=== PATIENT | male | born 1995 | race Caucasian/White ===

== ENCOUNTER 2019-02-24 17:21 | Inpatient (IN) | payer BC, OTHER ==
[~2019-02-24] VITALS: Ht 185.5 cm; Wt 136.8 kg
[2019-02-24] VITALS (7 sets, daily range): BP systolic 124–141; BP diastolic 70–84
[2019-02-24] MEDS ORDERED: NS IV 1000 ML 1,000 ML IV STA (17:38)
[2019-02-24] MEDS ORDERED: KETOROLAC 30 MG/ML VIAL IVP ONE (17:45)
[2019-02-24] MEDS ORDERED: IOHEXOL 350 MG/ML 100 ML (OMNIPAQUE 350) VIAL IV ONE (17:45)
[2019-02-24] MEDS ORDERED: NS 100 ML (IVPB) BAG IV ONE (17:45)
[2019-02-24] MEDS ORDERED: ONDANSETRON 4 MG/2 ML (SDV) Z0FRAN IVP ONE (17:45)
[2019-02-24] MEDS ORDERED: CATHETER FLUSH 10 ML SYR IV PRN (17:45)
[2019-02-24] MEDS ORDERED: HOLD METFORMIN - RECEIVED CONTRAST 20 ML VIAL IV SCH (17:45)
--- NOTE | 2019-02-24 17:47 | ED Abdominal Pain ---
General Chief Complaint: Abdominal/GI Problems Stated Complaint: ABD PAIN History of Present Illness Date Seen by Provider: Feb 24, 2019 Time Seen by Provider: 17:45 Initial Comments The patient is a 23-year-old male with a history of asthma and a prior "bowel obstruction" from constipation / obstipation in the past which sounds as though it was managed conservatively and resolved. The patient presents with concern for acute onset of crampy generalized abdominal discomfort which has become more sharp and focal and localized to the right lower quadrant of the abdomen, nonradiating, with onset about 18 hours prior to arrival, awakening the patient from sleep. Patient at first thought he was just constipated but had a normal bowel movement which did not relieve his symptoms at all. Associated nausea and mild anorexia. No associated fevers, upper respiratory congestion/rhinorrhea, co ugh, shortness of breath or chest pain, upper or specifically left-sided abdominal pain, flank pain, back pain, pain to testicles or scrotum or inguinal region, dysuria or hematuria, changes in bowel habits. Patient states he has not had this discomfort before. Severity only about 3 out of 10 at present. Patient was sent here from the urgent care for further evaluation and treatment. Allergies and Home Medications Allergies Coded Allergies: amoxicillin (Verified Adverse Reaction, Unknown, vomiting, 02/24/19) Patient Home Medication List Home Medication List Reviewed: Yes Review of Systems Review of Systems Constitutional: see HPI All Other Systems Reviewed Negative Unless Noted: Yes (Negative excepted noted.) Past Iqkqepz-Oljcll-Fstucd Hx Past Med/Social Hx: Reviewed Nursing Past Med/Soc Hx Patient Social History Alcohol Use: Denies Use Recreational Drug Use: No Smoking Status: Never a Smoker 2nd Hand Smoke Exposure: No Recent Foreign Travel: No Contact w/Someone Who Travel: No Recent Hopitalizations: No Physical Abuse: No Sexual Abuse: No Mistreated: No Fear: No Seasonal Allergies Seasonal Allergies: No Past Medical History Surgeries: Yes Orthopedic Respiratory: Yes Asthma Cardiac: No Neurological: No Genitourinary: No Gastrointestinal: No Musculoskeletal: No Endocrine: No HEENT: No Cancer: No Psychosocial: No Integumentary: No Blood Disorders: No Adverse Reaction/Blood Tranf: No Family Medical History Reviewed Nursing Family Hx Physical Exam Vital Signs Vital Signs - First Documented 02/24/19 17:25 Temp 36.6 Pulse 95 Resp 18 B/P (MAP) 184/100 (128) Pulse Ox 98 Capillary Refill : Height/Weight/BMI Height: '" Weight: lbs. oz. kg; BMI Method: General Appearance: no apparent distress Exam Comments This is a younger male appearing nontoxic and in no acute distress. Head is normocephalic and atraumatic. Neck is supple and nontender. Oropharynx is moist. Lungs are clear to auscultation at all stations. There is a normal S1 and S2 without rubs or gallops and capillary refill is appropriate, less than 2 seconds globally. Abdomen is soft and nondistended with mild right lower quadrant tenderness to palpation without rebound or guarding. Skin is warm and dry without cyanosis, clubbing or edema. Psychiatrically, the patient demonstrates appropriate mood and affect and is alert. Progress/Results/Core Measures Results/Orders Lab Results Laboratory Tests Test 02/24/19 17:42 02/24/19 18:15 Range/Units White Blood Count 9.7 4.3-11.0 10^3/uL Red Blood Count 5.66 4.35-5.85 10^6/uL Hemoglobin 15.7 13.3-17.7 G/DL Hematocrit 48 40-54 % Mean Corpuscular Volume 85 80-99 FL Mean Corpuscular Hemoglobin 28 25-34 PG Mean Corpuscular Hemoglobin Concent 33 32-36 G/DL Red Cell Distribution Width 14.9 H 10.0-14.5 % Platelet Count 294 130-400 10^3/uL Mean Platelet Volume 11.9 H 7.4-10.4 FL Neutrophils (%) (Auto) 52 42-75 % Lymphocytes (%) (Auto) 36 12-44 % Monocytes (%) (Auto) 8 0-12 % Eosinophils (%) (Auto) 2 0-10 % Basophils (%) (Auto) 1 0-10 % Neutrophils # (Auto) 5.1 1.8-7.8 X 10^3 Lymphocytes # (Auto) 3.5 1.0-4.0 X 10^3 Monocytes # (Auto) 0.8 0.0-1.0 X 10^3 Eosinophils # (Auto) 0.2 0.0-0.3 10^3/uL Basophils # (Auto) 0.1 0.0-0.1 10^3/uL Sodium Level 136 135-145 MMOL/L Potassium Level 4.0 3.6-5.0 MMOL/L Chloride Level 98 98-107 MMOL/L Carbon Dioxide Level 23 21-32 MMOL/L Anion Gap 15 H 5-14 MMOL/L Blood Urea Nitrogen 19 H 7-18 MG/DL Creatinine 1.03 0.60-1.30 MG/DL Estimat Glomerular Filtration Rate > 60 BUN/Creatinine Ratio 18 Glucose Level 101 70-105 MG/DL Calcium Level 9.5 8.5-10.1 MG/DL Corrected Calcium 8.5-10.1 MG/DL Total Bilirubin 0.2 0.1-1.0 MG/DL Aspartate Amino Transf (AST/SGOT) 16 5-34 U/L Alanine Aminotransferase (ALT/SGPT) 17 0-55 U/L Alkaline Phosphatase 117 40-136 U/L Total Protein 8.4 H 6.4-8.2 GM/DL Albumin 4.6 H 3.2-4.5 GM/DL Lipase 26 8-78 U/L Urine Color YELLOW Urine Clarity CLEAR Urine pH 6.0 5-9 Urine Specific [place] 1.020 1.016-1.022 Urine Protein NEGATIVE NEGATIVE Urine Glucose (UA) NEGATIVE NEGATIVE Urine Ketones NEGATIVE NEGATIVE Urine Nitrite NEGATIVE NEGATIVE Urine Bilirubin NEGATIVE NEGATIVE Urine Urobilinogen 0.2 < = 1.0 MG/DL Urine Leukocyte Esterase NEGATIVE NEGATIVE Urine RBC (Auto) TRACE H NEGATIVE Urine RBC RARE /HPF Urine WBC NONE /HPF Urine Squamous Epithelial Cells RARE /HPF Urine Crystals NONE /LPF Urine Bacteria NEGATIVE /HPF Urine Casts NONE /LPF Urine Mucus NONE /LPF Urine Culture Indicated NO My Orders Orders - ANDREW CULLEN MD Ondansetron Injection (Zofran Injectio (02/24/19 17:45) Ns Iv 1000 Ml (Sodium Chloride 0.9%) (02/24/19 17:38) Ed Iv/Invasive Line Start (02/24/19 17:38) Comprehensive Metabolic Panel (02/24/19 17:38) Lipase (02/24/19 17:38) Ua Culture If Indicated (02/24/19 17:38) Cbc With Automated Diff (02/24/19 17:38) Ct Abdomen/Pelvis W (02/24/19 17:38) Ketorolac Injection (Toradol Injection) (02/24/19 17:45) Iohexol Injection (Omnipaque 350 Mg/Ml 1 (02/24/19 17:45) Received Contrast (Hold Metformin- Contr (02/24/19 17:45) Sodium Chloride Flush (Catheter Flush Sy (02/24/19 17:45) Ns (Ivpb) (Sodium Chloride 0.9% Ivpb Bag (02/24/19 17:45) Ertapenem (Non-Formulary) (Invanz (Non-F (02/25/19 09:00) Medications Given in ED Current Medications Medications Dose Ordered Sig/Sarah Route Start Time Stop Time Status Last Admin Dose Admin Iohexol 100 ml ONCE ONCE IV 02/24/19 17:45 02/24/19 17:46 DC 02/24/19 18:09 100 ML Ketorolac Tromethamine 30 mg ONCE ONCE IVP 02/24/19 17:45 02/24/19 17:46 DC 02/24/19 17:48 30 MG Ondansetron HCl 4 mg ONCE ONCE IVP 02/24/19 17:45 02/24/19 17:46 DC 02/24/19 17:48 4 MG Sodium Chloride 10 ml NEEDED PRN IV 02/24/19 17:45 02/24/19 18:09 10 ML Sodium Chloride 100 ml ONCE ONCE IV 02/24/19 17:45 02/24/19 17:46 DC 02/24/19 18:09 100 ML Vital Signs/I&O 02/24/19 17:25 Temp 36.6 Pulse 95 Resp 18 B/P (MAP) 184/100 (128) Pulse Ox 98 Progress Progress Note : Time: 17:48 Progress Note 23-year-old male with generalized abdominal discomfort which is become more focal and sharp to the right lower quadrant of the abdomen. We will place IV and check labs and give medication for discomfort and nausea and we'll obtain a CT scan of the abdomen and pelvis with IV contrast. We will then reevaluate. Update 1900: The patient is resting comfortably in no acute distress on reassessment. Laboratory evaluation is unremarkable however CT does reveal enlarged appendix with findings suspicious for early acute appendicitis, certainly even more suspicious given the clinical context. Penicillin allergy so we will give a dose of Invanz and will proceed with admission to [facility]. Dr. Lemus of general surgery graciously accepts. Diagnostic Imaging Comments CT ABDOMEN/PELVIS W INDICATION: Nausea and lower abdominal pain. TECHNIQUE: Multiple contiguous axial images were obtained through the abdomen and pelvis after administration of intravenous contrast. Auto Exposure Controls were utilized during the CT exam to meet ALARA standards for radiation dose reduction. COMPARISON: There is no previous study for comparison. The visualized portions of the lung bases are clear. There were no pleural fluid collections. There is no free intraperitoneal air. The liver shows no focal lesions. Gallbladder appears normal. The spleen, adrenals, and pancreas appear normal. The kidneys bilaterally are unremarkable. There is no retroperitoneal mass or adenopathy. There is no ascites. The visualized bowel loops appear unremarkable. The appendix is mildly thickened measuring up to 7 mm, with perhaps slight periappendiceal haziness. IMPRESSION: Findings suspicious for early appendicitis with mild thickening of the appendix with slight periappendiceal haziness. There is no abscess, bowel obstruction or other focal abnormality. Dictated on workstation # [id number] Departure Impression Primary Impression: Right lower quadrant abdominal pain Additional Impression: Acute appendicitis Qualified Codes: K35.890 - Other acute appendicitis without perforation or gangrene Disposition: ADMITTED INPATIENT Condition: Stable ANDREW CULLEN MD Feb 24, 2019 17:47
[2019-02-24 18:10] LABS: HEMATOCRIT 48 % (40-54); HEMOGLOBIN 15.7 G/DL (13.3-17.7); MEAN CORPUSCULAR HEMOGLOBIN 28 PG (25-34); MEAN CORPUSCULAR HGB CONC 33 G/DL (32-36); MEAN CORPUSCULAR VOLUME 85 FL (80-99); MEAN PLATELET VOLUME 11.9 FL (7.4-10.4); NEUTROPHILS % (AUTO) 52 % (42-75); PLATELET COUNT 294 10^3/uL (130-400); RED CELL DISTRIBUTION WIDTH 14.9 % (10.0-14.5); WHITE BLOOD COUNT 9.7 10^3/uL (4.3-11.0)
[2019-02-24 18:11] LABS: BASOPHILS # (AUTO) 0.1 10^3/uL (0.0-0.1); BASOPHILS % (AUTO) 1 % (0-10); EOSINOPHILS # (AUTO) 0.2 10^3/uL (0.0-0.3); EOSINOPHILS % (AUTO) 2 % (0-10); LYMPHOCYTES # (AUTO) 3.5 X 10^3 (1.0-4.0); LYMPHOCYTES % (AUTO) 36 % (12-44); MONOCYTES # (AUTO) 0.8 X 10^3 (0.0-1.0); MONOCYTES % (AUTO) 8 % (0-12); NEUTROPHILS # (AUTO) 5.1 X 10^3 (1.8-7.8)
--- NOTE | 2019-02-24 18:28 | Diagnostic Imaging Report ---
INDICATION: Nausea and lower abdominal pain. TECHNIQUE: Multiple contiguous axial images were obtained through the abdomen and pelvis after administration of intravenous contrast. Auto Exposure Controls were utilized during the CT exam to meet ALARA standards for radiation dose reduction. COMPARISON: There is no previous study for comparison. The visualized portions of the lung bases are clear. There were no pleural fluid collections. There is no free intraperitoneal air. The liver shows no focal lesions. Gallbladder appears normal. The spleen, adrenals, and pancreas appear normal. The kidneys bilaterally are unremarkable. There is no retroperitoneal mass or adenopathy. There is no ascites. The visualized bowel loops appear unremarkable. The appendix is mildly thickened measuring up to 7 mm, with perhaps slight periappendiceal haziness. IMPRESSION: Findings suspicious for early appendicitis with mild thickening of the appendix with slight periappendiceal haziness. There is no abscess, bowel obstruction or other focal abnormality. Dictated by: Dictated on workstation # [id number]
[2019-02-24 18:33] LABS: BACTERIA,URINE NEGATIVE /HPF; BILIRUBIN,URINE NEGATIVE (NEGATIVE); CLARITY,URINE CLEAR; COLOR,URINE YELLOW; GLUCOSE, URINE (UA) NEGATIVE (NEGATIVE); KETONES,URINE NEGATIVE (NEGATIVE); LEUKOCYTE ESTERASE ,URINE NEGATIVE (NEGATIVE); NITRITE,URINE NEGATIVE (NEGATIVE); PROTEIN,URINE NEGATIVE (NEGATIVE); RBC,URINE RARE /HPF; SQUAMOUS EPITHELIAL CELL,UR RARE /HPF
[2019-02-24 18:40] LABS: ALANINE AMINOTRANSFERASE 17 U/L (0-55); ALKALINE PHOSPHATASE 117 U/L (40-136); BILIRUBIN,TOTAL 0.2 MG/DL (0.1-1.0); BUN/CREATININE RATIO 18; CALCIUM 9.5 MG/DL (8.5-10.1); CARBON DIOXIDE 23 MMOL/L (21-32); CHLORIDE 98 MMOL/L (98-107); CREATININE SERUM 1.03 MG/DL (0.60-1.30); GFR ESTIMATED > 60; GLUCOSE 101 MG/DL (70-105); SODIUM 136 MMOL/L (135-145); TOTAL PROTEIN 8.4 GM/DL (6.4-8.2)
[2019-02-24 18:41] LABS: ALBUMIN 4.6 GM/DL (3.2-4.5); LIPASE 26 U/L (8-78)
[2019-02-24] MEDS ORDERED: morphine INJ 10 MG/ML 1ML (SYR OR VIAL) IVP STA (19:07)
--- NOTE | 2019-02-24 19:16 | NUR ---
CALLED FOR ROOM.
--- NOTE | 2019-02-24 20:30 | NUR ---
STEVE GAMBLE admitted to room 420-1, with an admitting diagnosis of ACUTE APPENDICITIS, on 02/24/19 from [place] via [facility], accompanied by EMS.STEVE GAMBLE introduced to surroundings, call light, bed controls, phone, TV, temperature control, lights, meal times, smoking policy, visitor policy, side rail policy, bathrooms and showers. Patient Rights given to patient in the handbook. STEVE GAMBLE verbalizes understanding that [facility] is not responsible for the loss or damage to any personal effects or valuables that are kept in the patients posession during their hospitalization. Patient and/or family were informed about the Rapid Response Team and its purpose.
[2019-02-24] MEDS ORDERED: D5 NS 1000 ML IV SOLUTION 1,000 ML IV ONE (20:35)
[2019-02-24] MEDS ORDERED: LACTATED RINGERS 1,000 ML IV PRN (20:47)
[2019-02-24] MEDS ORDERED: SEVOFLURANE (ULTANE) 15 ML INHAL SOLN ONE (20:49)
[2019-02-24] MEDS ORDERED: LIDOCAINE PF 2% 5 ML (XYLOCAINE) VIAL ONE (20:49)
[2019-02-24] MEDS ORDERED: proPOfol 200 MG/20 ML (DIPRIVAN) VIAL IV ONE ×2 (20:49→22:14)
[2019-02-24] MEDS ORDERED: MIDAZOLAM 2 MG/2 ML (VERSED) VIAL ONE (20:53)
[2019-02-24] MEDS ORDERED: morphine INJ 10 MG/ML 1ML (SYR OR VIAL) IVP ONE (21:00)
[2019-02-24] MEDS ORDERED: ONDANSETRON 4 MG/2 ML (SDV) Z0FRAN IVP PRN (21:00)
[2019-02-24] MEDS: D5 NS 1000 ML IV SOLUTION 1,000 ML IV SCH (21:00)
[2019-02-24] MEDS ORDERED: MEPERIDINE (DEMEROL) INJ 50 MG/ML IVP ONE (21:00)
[2019-02-24] MEDS ORDERED: fentaNYL INJECTION 100 MCG/2 ML AMP IVP ONE (21:00)
[2019-02-24] MEDS ORDERED: BUP/EPI 0.5% 1:200,000 (SENSORCAINE) 30 ML VIAL ONE (21:02)
--- NOTE | 2019-02-24 21:20 | NUR ---
DR LOVE SEEN PT, DISCUSSED SURGICAL PROCEDURE WITH PT. INFORMED CONSENT OBTAIN BY THIS RN.
--- NOTE | 2019-02-24 21:25 | NUR ---
PT OFF FLOOR FOR PROCEDURE AT THIS TIME. ADMISSION QUESTIONS NOT FINISHES AT THIS TIME DUE TO PROCEDURE Addendum: 02/24/19 at 2278 by WAYNE BRADFORD RN FINISHED
[2019-02-24] MEDS ORDERED: ONDANSETRON 4 MG/2 ML (SDV) Z0FRAN IV PRN (21:30)
--- NOTE | 2019-02-24 21:31 | Consultation - Surgery ---
History of Present Illness History of Present Illness Patient Consulted On(carlos/time) 02/24/19 21:23 Time Seen by Provider: 21:01 History of Present Illness Surgery asked to consult regarding RLQ pain, Appendicitis. HPI per ED: The patient is a 23-year-old male with a history of asthma and a prior "bowel obstruction" from constipation / obstipation in the past which sounds as though it was managed conservatively and resolved. The patient presents with concern for acute onset of crampy generalized abdominal discomfort which has become more sharp and focal and localized to the right lower quadrant of the abdomen, nonradiating, with onset about 18 hours prior to arrival, sarah kening the patient from sleep. Patient at first thought he was just constipated but had a normal bowel movement which did not relieve his symptoms at all. Associated nausea and mild anorexia. No associated fevers, upper respiratory congestion/rhinorrhea, cough, shortness of breath or chest pain, upper or specifically left-sided abdominal pain, flank pain, back pain, pain to testicles or scrotum or inguinal region, dysuria or hematuria, changes in bowel habits. Patient states he has not had this discomfort before. Severity only about 3 out of 10 at present. Patient was sent here from the urgent care for further evaluation and treatment. When I spoke to pt he states pain started at midnight across the middle of abdomen and then went down into RLQ. Pain is worse with any movement or when bumps hit in road. Allergies and Home Medications Allergies Coded Allergies: amoxicillin (Verified Adverse Reaction, Unknown, vomiting, 02/24/19) Patient Home Medication List Home Medication List Reviewed: Yes Past Elhuanl-Euqumo-Skwvti Hx Patient Social History Alcohol Use: Denies Use Recreational Drug Use: No Smoking Status: Never a Smoker 2nd Hand Smoke Exposure: No Recent Foreign Travel: No Contact w/Someone Who Travel: No Recent Infectious Disease Expo: No Recent Hopitalizations: No Seasonal Allergies Seasonal Allergies: No Surgeries History of Surgeries: Yes Surgeries: Orthopedic Respiratory History of Respiratory Disorde: Yes Respiratory Disorders: Asthma Cardiovascular History of Cardiac Disorders: No Neurological History of Neurological Disord: No Genitourinary History of Genitourinary Disor: No Gastrointestinal History of Gastrointestinal Di: No Musculoskeletal History of Musculoskeletal Dis: No Endocrine History of Endocrine Disorders: No HEENT History of HEENT Disorders: No Cancer History of Cancer: No Psychosocial History of Psychiatric Problem: No Integumentary History of Skin or Integumenta: No Blood Transfusions History of Blood Disorders: No Adverse Reaction to a Blood Tr: No Family Medical History Significant Family History: Asthma (Father) Review of Systems-General Constitutional: No chills, No diaphoresis, No malaise; other (+anorexia) EENTM: No blurred vision, No double vision, No eye pain, No mouth swelling, No epistaxis Respiratory: No cough, No dyspnea on exertion, No hemoptysis, No short of breath Cardiovascular: No chest pain, No palpitations Gastrointestinal: abdominal pain (RLQ); No constipation, No diarrhea, No hemat emesis, No nausea, No vomiting Genitourinary: No dysuria, No frequency, No hematuria Musculoskeletal: No joint swelling, No muscle stiffness Skin: No change in color, No change in hair/nails Psychiatric/Neurological: Denies Anxiety, Denies Depressed, Denies Seizure, Denies Tremors Other pt denies any hx of abnormal bleeding or bruising Physical Exam-General Problems Physical Exam Vital Signs Vital Signs - First Documented 02/24/19 02/24/19 17:25 19:45 Temp 36.6 Pulse 95 Resp 18 B/P (MAP) 184/100 (128) Pulse Ox 98 O2 Delivery Room Air Capillary Refill : Less Than 3 Seconds General Appearance: WD/WN, no apparent distress Eyes: Bilateral Eye PERRL, Bilateral Eye EOMI HEENT: pharynx normal; No scleral icterus (R), No scleral icterus (L) Neck: non-tender, full range of motion, supple Respiratory: chest non-tender, lungs clear, normal breath sounds, no respiratory distress, no accessory muscle use Cardiovascular: regular rate, rhythm, no murmur Gastrointestinal: normal bowel sounds, soft, no organomegaly, guarding (voluntary), tenderness (RLQ), hernia (small UH) Back: no CVA tenderness, no vertebral tenderness Extremities: normal range of motion, non-tender, normal inspection, no pedal edema, no calf tenderness Neurologic/Psychiatric: staffing recruiter II-XII nml as tested, no motor/sensory deficits, alert, normal mood/affect, oriented x 3 Skin: normal color, warm/dry Lymphatic: no adenopathy (neck, axilla or groin) Data Review Labs Laboratory Tests 02/24/19 17:42: White Blood Count 9.7, Red Blood Count 5.66, Hemoglobin 15.7, Hematocrit 48, Mean Corpuscular Volume 85, Mean Corpuscular Hemoglobin 28, Mean Corpuscular Hemoglobin Concent 33, Red Cell Distribution Width 14.9H, Platelet Count 294, Mean Platelet Volume 11.9H, Neutrophils (%) (Auto) 52, Lymphocytes (%) (Auto) 36, Monocytes (%) (Auto) 8, Eosinophils (%) (Auto) 2, Basophils (%) (Auto) 1, Neutrophils # (Auto) 5.1, Lymphocytes # (Auto) 3.5, Monocytes # (Auto) 0.8, Eosinophils # (Auto) 0.2, Basophils # (Auto) 0.1, Sodium Level 136, Potassium Level 4.0, Chloride Level 98, Carbon Dioxide Level 23, Anion Gap 15H, Blood Urea Nitrogen 19H, Creatinine 1.03, Estimat Glomerular Filtration Rate > 60, BUN/Creatinine Ratio 18, Glucose Level 101, Calcium Level 9.5, Corrected Calcium , Total Bilirubin 0.2, Aspartate Amino Transf (AST/SGOT) 16, Alanine Aminotransferase (ALT/SGPT) 17, Alkaline Phosphatase 117, Total Protein 8.4H, Albumin 4.6H, Lipase 26 02/24/19 18:15: Urine Color YELLOW, Urine Clarity CLEAR, Urine pH 6.0, Urine Specific [place] 1.020, Urine Protein NEGATIVE, Urine Glucose (UA) NEGATIVE, Urine Ketones NEGATIVE, Urine Nitrite NEGATIVE, Urine Bilirubin NEGATIVE, Urine Urobilinogen 0.2, Urine Leukocyte Esterase NEGATIVE, Urine RBC (Auto) TRACEH, Urine RBC RARE, Urine WBC NONE, Urine Squamous Epithelial Cells RARE, Urine Crystals NONE, Urine Bacteria NEGATIVE, Urine Casts NONE, Urine Mucus NONE, Urine Culture Indicated NO Assessment/Plan Assessment/Plan Assessment/Plan RLQ pain - Acute Appendicitis Pt has signs classic for appendicitis; even though WBC is normal and pt has no fever. Radiologist read CT of abd/pelvis as suspect early acute appendicitis. I believe pt will best be served by Laparoscopic Appendectomy. Consent obtained, pt already got dose of ABX and will go down to OR. Discussed the procedure with pt and his parents; risks and complication not limited to pain, bleeding, infection, scar, damage to bowel and need for further procedure. All questions answered to their satisfaction. This consult was necessary to asses pt, make informed decision and to make sure pt and family understood procedure. ELSA LOVE DO Feb 24, 2019 21:31
[2019-02-24] MEDS ORDERED: ROCURONIUM 10 MG/ML 5 ML SYRINGE IV ONE (22:10)
[2019-02-24] MEDS ORDERED: SUCCINYLCHOLINE INJ 100 MG/5 ML SYR ONE (22:10)
--- NOTE | 2019-02-24 22:15 | Progress Note-Post Operative ---
Post-Operative Progess Note Surgeon (s)/Hair Preparer (s) Surgeon ELSA LOVE DO Hair Preparer: none Pre-Operative Diagnosis RLQ pain, appy Post-Operative Diagnosis Acute appy Procedure & Operative Findings Date of Procedure 02/24/19 Procedure Performed/Findings Lap Appy Anesthesia Type GET Estimated Blood Loss Estimated blood loss (mL): scant Specimens/Packing Specimens Removed ELSA Burrows DO Feb 24, 2019 22:15
[2019-02-24] MEDS ORDERED: ACHD5005 PO (22:17)
--- NOTE | 2019-02-24 22:18 | Discharge Inst-Surgical ---
Discharge Inst-Surgical Depart Medication/Instructions New, Converted or Re-Newed RX: RX Given to Pt/Family Patient Instructions Follow up Appt: Make appointment for 1 week. [phone] Instructions: No lifting greater than 20 pounds. No strenuous activity. May shower in 24 hours, no tub bath or soaking. Use incentive spirometer at home as directed. No Smoking Skin/Wound Care: May remove bandages in am. You need to leave the Dermabond on incision it will fall off on it's own. Symptoms to Report: Appetite Changes, Extremity Discoloration, Numbness/Tingling, Swelling Increased, Bleeding Excessive, Eyesight Changes, Pain Increased, Urine Color Change, Constipation(Persistent), Fever over 101 degree F, Pain/Pressure in chest, Urinating Difficulty, Cough Up/Vomit Blood, Heart Beat Irreg/Pounding, Pain/Pressure in jaw, Cramps in feet or legs, Lightheadedness, Pain/Pressure in shoulder, Diarrhea(Persistent), Memory Changes Suddenly, Questions/Concerns, Weight gain consecutive days, Dizziness/Fainting, Nausea/Vomiting, Shortness of Breath, Weight gain over 2 pounds If questions or concerns contact your physician Or seek help at emergency department. Activity Activity as Tolerated: Yes Activity Instructions: Avoid Stress to Incision Driving Instructions: No Driving/Refer to Dr. Meilssa Discharge Diet: No Restrictions Diet After 24 Hours: Clear Liquid if Nauseous If Any Problems/Questions/Issu: Contact Your Physician, Go to Emergency Room Skin/Wound Care Infection Signs and Symptoms: Increased Redness, Foul Odor of Wound, Increased Drainage, Skin Itchy or Has a Rash, Increased Swelling, Temperature Above 101 F Wound Care Comment: Heating pad to shoulder or neck for pain Bathing Instructions: Shower Stitches/[place]/Dermabond Dis: Dermabond Ice Pack: Ice On and Off Site (as needed at incision sites) ELSA LOVE DO Feb 24, 2019 22:18
--- NOTE | 2019-02-24 23:40 | NUR ---
pt back from surgery. report received from ALLYSON Sauer. Pt lap sites assessed, C/D/I, no complaints of pain at this time
--- NOTE | 2019-02-25 00:30 | NUR ---
dr moss ordered to advance diet as tolerated
[2019-02-25] MEDS: morphine INJ 4 MG/ML 1 ML (VIAL/SYRINGE) IV PRN ×2 (02:32→07:40)
[2019-02-25 04:15] VITALS: BP 121/68
[2019-02-25 05:59] LABS: BASOPHILS % (AUTO) 0 % (0-10); EOSINOPHILS # (AUTO) 0.2 10^3/uL (0.0-0.3); EOSINOPHILS % (AUTO) 2 % (0-10); HEMATOCRIT 41 % (40-54); HEMOGLOBIN 13.1 G/DL (13.3-17.7); LYMPHOCYTES # (AUTO) 3.6 X 10^3 (1.0-4.0); LYMPHOCYTES % (AUTO) 37 % (12-44); MEAN CORPUSCULAR HEMOGLOBIN 27 PG (25-34); MEAN CORPUSCULAR HGB CONC 32 G/DL (32-36); MEAN CORPUSCULAR VOLUME 85 FL (80-99); MEAN PLATELET VOLUME 11.7 FL (7.4-10.4); MONOCYTES # (AUTO) 0.8 X 10^3 (0.0-1.0); MONOCYTES % (AUTO) 9 % (0-12); NEUTROPHILS # (AUTO) 5.1 X 10^3 (1.8-7.8); NEUTROPHILS % (AUTO) 52 % (42-75); PLATELET COUNT 192 10^3/uL (130-400); RED CELL DISTRIBUTION WIDTH 15.4 % (10.0-14.5); WHITE BLOOD COUNT 9.8 10^3/uL (4.3-11.0)
[2019-02-25 06:21] LABS: ALANINE AMINOTRANSFERASE 16 U/L (0-55); ALBUMIN 3.7 GM/DL (3.2-4.5); ALKALINE PHOSPHATASE 79 U/L (40-136); BILIRUBIN,TOTAL 0.4 MG/DL (0.1-1.0); BUN/CREATININE RATIO 18; CALCIUM 8.7 MG/DL (8.5-10.1); CARBON DIOXIDE 19 MMOL/L (21-32); CHLORIDE 107 MMOL/L (98-107); CREATININE SERUM 0.94 MG/DL (0.60-1.30); GFR ESTIMATED > 60; GLUCOSE 103 MG/DL (70-105); POTASSIUM 4.1 MMOL/L (3.6-5.0); SODIUM 137 MMOL/L (135-145); TOTAL PROTEIN 6.6 GM/DL (6.4-8.2)
--- NOTE | 2019-02-25 07:00 | Anesthesia-General Post-Op ---
General Patient Condition Mental Status/LOC: Same as Preop Cardiovascular: Satisfactory Nausea/Vomiting: Absent Respiratory: Satisfactory Pain: Controlled Complications: Absent Post Op Complications Complications None Follow Up Care/Instructions Patient Instructions None needed. Anesthesia/Patient Condition Patient Condition Patient is doing well, no complaints, stable vital signs, no apparent adverse anesthesia problems. No complications reported per nursing. TAHIR KELLEY CRNA Feb 25, 2019 07:00
[2019-02-25] MEDS: D5 NS 1000 ML IV SOLUTION 1,000 ML IV SCH (07:41)
[2019-02-25 08:00] VITALS: BP 142/78
[2019-02-25] MEDS ORDERED: ERTAPENEM (NON-FORMULARY) 1,000 MG in NS (IVPB) 50 ML IV ONE (09:00)
--- NOTE | 2019-02-25 14:31 | OPERATIVE REPORT ---
DATE OF SERVICE: 02/24/2019 PREOPERATIVE DIAGNOSIS: Acute appendicitis. POSTOPERATIVE DIAGNOSIS: Acute appendicitis. PROCEDURE: Laparoscopic appendectomy. SURGEON: Jose David Amador DO ACTIVITIES AIDE: None. ANESTHESIA: General endotracheal tube. SPECIMEN: Appendix. BLOOD LOSS: Scant. FLUIDS: Per anesthesia. POSTOPERATIVE CONDITION: Stable. INDICATION FOR PROCEDURE: The patient is a 23-year-old male who had some abdominal pain localized in the right lower quadrant classic for appendicitis and a CAT scan read as early appendicitis. FINDINGS: The patient had mildly dilated appendix and some inflammation around the mesoappendix. This looked like an early acute appendicitis. PROCEDURE NOTE: After informed consent was obtained, the patient was brought to the operating room, placed on the operating table in supine position, sterilely prepped and draped in normal fashion. Local lidocaine was used to infiltrate the skin above the umbilicus. I made the incision with #11 blade, carried down through the skin into subcutaneous tissue, then deepened down to subcutaneous tissue with Bovie electrocautery down to the fascia. Fascia was incised with Bovie electrocautery, then bluntly entered the abdomen, swept a finger around, placed 0 Vicryl [id number] suture, then placed 11 mm trocar port under direct visualization. Created pneumoperitoneum and placed 2 more ports in normal fashion using local lidocaine, 11 blade for stab incision and the VersaStep system, all done under direct visualization, one suprapubically and one left lower quadrant. The patient then placed slightly Trendelenburg and rotated to the left, able to visualize the appendix. I could see the tip and then when grasping the mesoappendix, saw some inflammation in the mesoappendix lifted this up and then saw some thickening of the appendix. Started taking the appendix off the cecum coming across the mesoappendix with LigaSure, clamping, coagulating and transecting in this fashion, freeing the appendix up so it was only attached to the cecum and coming through and clamping and coagulating the appendiceal artery. Once this was done, switched to 5 mm camera, brought Endo-KESHAWN and placed across the appendix at the base, clamped and fired, thereby transecting the appendix, placed a bag in the abdomen, placed the appendix in the bag and removed through supraumbilical incision. Looked back in irrigated and suctioned this out, looked around, no other obvious pathology. At this point, then placed the patient supine, removed all ports under direct visualization, allowed pneumoperitoneum to escape, supraumbilical incision, closing the fascia with 0 Vicryl suture previously placed. Copiously irrigated all incisions normal saline and then closed the 2 small 5 mm incisions with a single interrupted 4-0 undyed Monocryl subcuticular stitch and closed the supraumbilical incision with 3 interrupted 4-0 undyed Monocryl subcuticular stitches. Area was cleaned and dried. Dermabond and Band-Aids placed. The patient tolerated the procedure. Sponge, instrument and needle count correct at the end of the case. Job ID: [id number] DocumentID: [id number] Dictated Date: 02/25/2019 09:03:32 Truck Trailer Final Inspector Date: 02/25/2019 14:30:17 Dictated By: JOSE DAVID AMADOR DO
== END 2019-02-25 11:38 | disposition home or self-care (01) | DRG 343 ==
LOC: ER FS 17:23 → 4TH 19:00
PROVIDERS: ADMIT Surgery; ATTEND Surgery
PROC: 0DTJ4ZZ Resection of Appendix, Percutaneous Endoscopic Approach (ICD-10-PCS; principal; 2019-02-25)
DX: K35.80 Unspecified acute appendicitis (principal); J45.909 Unspecified asthma, uncomplicated
CPT/HCPCS: 36415; 74177; 80053; 81000; 83690; 85025; 87081; 88304